=== PATIENT | female | born 1990 ===

== ENCOUNTER 2018-06-05 18:01 | Emergency (ER) | payer MEDICAID, OTHER ==
[2018-06-05 18:52] VITALS: BP 113/77; PULSE 77; RESP 18; TEMP 98.1; O2SAT 100
--- NOTE | 2018-06-05 19:30 | ED PDOC ---
HPI: Abdomen Time Seen by Provider: 06/05/18 19:20 Chief Complaint (Nursing): Abdominal Pain Chief Complaint (Provider): Back pain History Per: Patient History/Exam Limitations: no limitations Onset/Duration Of Symptoms: Days (x2) Additional Complaint(s): 27 y/o female presents to ED complaining of right lower back pain with radiation to right buttocks and right groin for the past x2 days. Patient is concerned that it might be her ovaries so he has an appointment with her OBGYN tomorrow. Patient reports that the pain is mostly in her lower back and upper buttock now and pain is worsened with positional movements. Her LMNP is now. Past Medical History Reviewed: Historical Data, Nursing Documentation, Vital Signs Vital Signs: Last Vital Signs Temp 98.1 F 06/05/18 18:50 Pulse 77 06/05/18 18:50 Resp 18 06/05/18 18:50 BP 113/77 06/05/18 18:50 Pulse Ox 100 06/05/18 18:50 - Medical History PMH: No Chronic Diseases, Depression Denies: Chronic Kidney Disease - Surgical History Surgical History: No Surg Hx - Family History Family History: States: Unknown Family Hx - Home Medications Home Medications: Ambulatory Orders Medication Instructions Recorded Loratadine/Pseudoephedrine 1 each PO 03/01/18 [Claritin-D 24 Hour Tablet] Sertraline HCl 100 mg PO DAILY 03/01/18 Ibuprofen [Motrin Tab] 600 mg PO TID PRN #15 tab 06/05/18 - Allergies Allergies/Adverse Reactions: Allergies Allergy/AdvReac Type Severity Reaction Status Date / Time SEAFOOD Allergy ANAPHYLAXIS Uncoded 06/05/18 18:50 Review of Systems ROS Statement: Except As Marked, All Systems Reviewed And Found Negative Musculoskeletal: Positive for: Back Pain, Other (right groin and right buttock pain) Physical Exam - Reviewed Nursing Documentation Reviewed: Yes Vital Signs Reviewed: Yes - Physical Exam Appears: Positive for: Non-toxic, No Acute Distress Head Exam: Positive for: ATRAUMATIC, NORMOCEPHALIC Skin: Positive for: Normal Color, Warm, DRY Eye Exam: Positive for: EOMI, Normal appearance, PERRL Gastrointestinal/Abdominal: Positive for: Normal Exam, Soft. Negative for: Tenderness (abdomen and pelvis, (-) rlq tenderness, (-) guarding.) Back: Positive for: Vertebral Tenderness (paralumbar and right upper buttock tenderness) Extremity: Positive for: Normal ROM. Negative for: Pedal Edema, Deformity Neurologic/Psych: Positive for: Alert, Oriented. Negative for: Motor/Sensory Deficits - ECG O2 Sat by Pulse Oximetry: 100 (RA) Pulse Ox Interpretation: Normal Medical Decision Making Medical Decision Making: Time: 19:18 Initial Impression: back pain Initial Plan: repeat exams, abd. is soft with no tenderness. Pt. will f/u with radio reporter as scheduled tomorrow. Scribe Attestation: Documented by Kehinde Medina, acting as a scribe for Paulina Schaefer PA-C Provider Scribe Attestation: All medical record entries made by the Scribe were at my direction and personally dictated by me. I have reviewed the chart and agree that the record accurately reflects my personal performance of the history, physical exam, medical decision making, and the department course for this patient. I have also personally directed, reviewed, and agree with the discharge instructions and disposition. Disposition - Clinical Impression Clinical Impression: Back pain - Patient ED Disposition Is Patient to be Admitted: No - Disposition Referrals: Misael De Guzman MD [Staff Provider] - Disposition: Routine/Home Disposition Time: 20:37 Condition: IMPROVED Prescriptions: Ibuprofen [Motrin Tab] 600 mg PO TID PRN #15 tab PRN Reason: Pain, Moderate (4-7) Instructions: Upper Back Pain (DC) Forms: [employer] (Tajik)
== END 2018-06-05 20:51 | disposition home or self-care (01) ==
LOC: H.ER 18:01
DX: M54.9 Dorsalgia, unspecified (principal)

== ENCOUNTER 2018-07-30 13:54 | Emergency (ER) | payer MEDICAID ==
[2018-07-30 14:19] VITALS: BP 113/72; PULSE 98; RESP 18; TEMP 97.7; O2SAT 99
--- NOTE | 2018-07-30 14:22 | ED PDOC ---
HPI: Eye Injury/Pain Time Seen by Provider: 07/30/18 14:02 Chief Complaint (Nursing): Eye Problem Chief Complaint (Provider): Eye problem History Per: Patient History/Exam Limitations: no limitations Onset/Duration Of Symptoms: Days (2x) Current Symptoms Are (Timing): Still Present Injury To Eye?: No Severity: Moderate Wears Contact Lens?: No Associated Symptoms: Pain, Discharge From Eye, Other (irritation) Additional Complaint(s): 27 year old female with no pertinent past medical history presents to the ED for an evaluation of mild left eye pain, irritation, and discharge ongoing for 2x days. Patient reports that the discharge worsens in the morning. Patient further reports that she is concerned that she may have HSV in her eye, as she gets HSV around her lips. Patient reports having similar symptoms 3x times in the past, but has never sought out medical attention for it because it always resolved spontaneously without medical intervention. Patient denies having fevers, wearing contact lenses, or having a history of diabetes. PMD: [facility] Past Medical History Reviewed: Historical Data, Nursing Documentation, Vital Signs Vital Signs: Last Vital Signs Temp 97.7 F 07/30/18 14:01 Pulse 98 H 07/30/18 14:01 Resp 18 07/30/18 14:01 BP 113/72 07/30/18 14:01 Pulse Ox 99 07/30/18 14:01 KILO Report Viewed: Yes - Medical History PMH: Depression Denies: Chronic Kidney Disease - Family History Family History: States: No Known Family Hx - Social History Current smoker - smoking cessation education provided: No Ex-Smoker (has not smoked in the last 12 months): Yes Alcohol: Occasional Drugs: Denies - Home Medications Home Medications: Ambulatory Orders Medication Instructions Recorded Loratadine/Pseudoephedrine 1 each PO 03/01/18 [Claritin-D 24 Hour Tablet] Sertraline HCl 100 mg PO DAILY 03/01/18 Ibuprofen [Motrin Tab] 600 mg PO TID PRN #15 tab 06/05/18 Erythromycin 0.5% [Erythromycin] 1 applic LEFTEYE Q6 #1 tube 07/30/18 - Allergies Allergies/Adverse Reactions: Allergies Allergy/AdvReac Type Severity Reaction Status Date / Time SEAFOOD Allergy ANAPHYLAXIS Uncoded 06/05/18 18:50 Review of Systems ROS Statement: Except As Marked, All Systems Reviewed And Found Negative Constitutional: Negative for: Fever Eyes: Positive for: Pain (mild left eye pain, irritation, and discharge) Physical Exam - Reviewed Nursing Documentation Reviewed: Yes Vital Signs Reviewed: Yes - Physical Exam Appears: Positive for: Well, Non-toxic, No Acute Distress Head Exam: Positive for: ATRAUMATIC, NORMOCEPHALIC Skin: Positive for: Normal Color, Warm, Dry Eye Exam: Positive for: EOMI (without pain), PERRL, Other (yellow discharge noted from left eye. (+) allergic shiner sign noted to left eye. (-) vesicles around left eye. Fluorescein stain: no dendritic ulcers, no fluorescein uptake.). Negative for: Periorbital swelling, Periorbital tenderness, Conjunctival injection (bilaterally) Neurologic/Psych: Positive for: Alert, Oriented (3x) - ECG O2 Sat by Pulse Oximetry: 99 (RA) Pulse Ox Interpretation: Normal Medical Decision Making Medical Decision Makin:02 Initial impression: 27 year old female with eye pain Scribe Attestation: Documented byLeida Kidd, acting as a scribe for Christian Bowen Provider Scribe Attestation: All medical record entries made by the Scribe were at my direction and personally dictated by me. I have reviewed the chart and agree that the record accurately reflects my personal performance of the history, physical exam, medical decision making, and the department course for this patient. I have also personally directed, reviewed, and agree with the discharge instructions and disposition. Disposition - Clinical Impression Clinical Impression: Conjunctivitis - Patient ED Disposition Is Patient to be Admitted: No - Disposition Referrals: [facility] [Outside] [facility] [Outside] Deniz Armenta MD [Staff Provider] - Disposition: Routine/Home Disposition Time: 14:20 Condition: STABLE Additional Instructions: FOLLOW UP WITH [facility] OR DR. ARMENTA (EYE DOCTOR) FOR FURTHER EVALUATION RETURN TO ED IMMEDIATELY IF SYMPTOMS WORSEN ARABELLA HUFF, thank you for letting us take care of you today. Your provider was José Luis Peña MD and you were treated for LT EYE PAIN. The emergency medical care you received today was directed at your acute symptoms. If you were prescribed any medication, please fill it and take as directed. It may take several days for your symptoms to resolve. Return to the Emergency Department if your symptoms worsen, do not improve, or if you have any other problems. Please contact your doctor or call one of the physicians/clinics you have been referred to that are listed on the Patient Visit Information form that is included in your discharge packet. Bring any paperwork you were given at discharge with you along with any medications you are taking to your follow up visit. Our treatment cannot replace ongoing medical care by a primary care provider outside of the emergency department. Thank you for allowing the [facility] team to be part of your care today. If you had an X-Ray or CT scan: A Radiologist will review the ED reading if any change in treatment is needed we will contact you. If you had a blood, urine, or wound culture: It will take several days for the results, if any change in treatment is needed we will contact you. If you had an STI test: It will take 48 hours for the results. Please call after 1 week if you have not heard back. Prescriptions: Erythromycin 0.5% [Erythromycin] 1 applic LEFTEYE Q6 #1 tube Instructions: Conjunctivitis ([place]) (DC) Forms: [employer] (Greek) Print Language: CUBAN
== END 2018-07-30 14:43 | disposition home or self-care (01) ==
LOC: H.ER 13:54
DX: H10.9 Unspecified conjunctivitis (principal)